=== PATIENT | male | born 1945 | race Two or more races ===

== ENCOUNTER 2017-12-04 18:46 | Emergency (ER) | payer OTHER ==
[~2017-12-04] VITALS: Ht 165.1 cm; Wt 59.0 kg
[2017-12-04] MEDS ORDERED: CARBIDOPA5 GM (19:38)
[2017-12-04] MEDS ORDERED: ASA81 MG (19:38)
[2017-12-04] MEDS ORDERED: DEPAKOTE ER250 MG (19:38)
[2017-12-04] MEDS ORDERED: NORVASC2.5 M1 (19:38)
[2017-12-04] MEDS ORDERED: NAMENDA10 MG (19:38)
== END 2017-12-04 23:52 | disposition home or self-care (01) ==
LOC: ER 18:46
DX: J16.8 Pneumonia due to other specified infectious organisms (principal); J20.8 Acute bronchitis due to other specified organisms

== ENCOUNTER 2020-01-24 15:06 | Emergency (ER) | payer OTHER ==
[~2020-01-24] VITALS: Ht 165.1 cm; Wt 59.0 kg
[~2020-01-24 15:06] MED LIST: ASA81 MG; CARBIDOPA5 GM; DEPAKOTE ER250 MG; NAMENDA10 MG; NORVASC2.5 M1
[2020-01-24] MEDS ORDERED: HYOSCYAMINE0.125 M2 (15:19)
[2020-01-24] MEDS ORDERED: ATROVENT (15:20)
[2020-01-24] MEDS ORDERED: IPRATROPIU0.2 MG/1 M (15:21)
== END 2020-01-24 19:12 | disposition home or self-care (01) ==
LOC: ER 15:06
DX: S01.82XA Laceration with foreign body of other part of head, initial encounter (principal); W07.XXXA Fall from chair, initial encounter; Y93.89 Activity, other specified; Y92.098 Other place in other non-institutional residence as the place of occurrence of the external cause; Y99.8 Other external cause status